=== PATIENT | male | born 1970 | race Caucasian/White ===

== ENCOUNTER 2019-05-03 05:37 | Inpatient (IN) ==
[2019-05-03] MEDS ORDERED: ONDANSETRON INJ 2 MG/ML 2 ML VIAL IV STA (06:07)
[2019-05-03] MEDS ORDERED: HYDROmorphone INJ 0.5 MG/0.5 ML SYR IV STA (06:07)
[2019-05-03] MEDS ORDERED: SODIUM CHLORIDE 0.9% 1000ML 1,000 ML IV SCH (06:15)
--- NOTE | 2019-05-03 06:17 | Emergency Department Note ---
History of Present Illness General Chief complaint: Head Pain Stated complaint: HEAD PAIN,NAUSEA Source: patient and family () Mode of arrival: ambulatory Limitations: no limitations (Occasional word finding difficulties.) History of Present Illness Onset (ago): day(s) (1.5 days) Location: head Radiation: neck Severity: severe Pain Consistency: + constant Maximum Pain Intensity: 8 Quality: + aching Relieved By: + medication (Pain medication) Exacerbated By: + none (Movement) Associated symptoms: + headaches and + nausea/vomiting Treatments prior to arrival: none This patient is a 48-year-old male who presents emergency department 4 days status post cranioplasty. States he was discharged from [facility] 2 days ago. He slept most of the day yesterday intermittently and did complain of a headache. At a proximally 3:00 this morning he woke up with severe pain and vomiting. He denies any fevers. states that there was a CSF leak post surgery as they "nicked the membrane." Patient apparently has a remote history of subdural hematoma and required decompression several years ago. The bony graft did not take subsequently and needed to be removed. A carbon fiber piece was put in its place. Patient denies any drainage from the wound. Home Medications Home Medications Medication Instructions Recorded Confirmed Type acetaminophen 650 mg PO Q4 PRN 05/03/19 05/03/19 History oxycodone 5 mg PO Q4 PRN 05/03/19 05/03/19 History phenytoin 100 mg PO TID 05/03/19 05/03/19 History Allergies Allergy/AdvReac Type Severity Reaction Status Date / Time No Known Allergies Allergy Verified 05/03/19 06:27 Past Med/Surg History Medical History Chronic post-traumatic headache, not intractable (Chronic) Hypertriglyceridemia (Chronic) Subdural hemorrhage following injury with concussion 2010 Surgical History History of cranioplasty (Chronic) Status post craniotomy (Chronic) due to SDH in 2010 with bone flap placement Social History Preferred Language: Spanish Research Assistant Member Required: No Beliefs That Will Affect Care: None Current Living Situation: Spouse Other Information That Helps Us Care for You: No Feels Safe at Home: Yes Safety Concerns: Feels Safe At This Time Smoking Status: Current every day smoker Tobacco Type: cigarettes Do You Dip or Chew Tobacco: No Second Hand Exposure: Yes Tobacco Cessation Education Requested by Patient: No Hx Alcohol Use: Yes (occ) Alcohol type: beer Hx Substance Use: No Review of Systems See HPI for pertinent positives & negatives. and A total of 10 systems reviewed and were otherwise negative Physical Exam Vital Signs Vital Signs - 24 hr 05/03/19 05:42 Temperature 36.5 C Temperature Source Oral Sepsis Recent Fever Within 48 Hours No Sepsis Action Taken by Nursing No Action Required Pulse Rate 78 Pulse Rhythm Regular Pulse Strength Normal Respiratory Rate 20 Respiratory Effort / Characteristics Non-Labored Spontaneous Respiratory Depth Normal Respiratory Pattern Regular Blood Pressure 162/95 H Blood Pressure Mean 117 Blood Pressure Position Sitting Pulse Oximetry 100 Oxygen Delivery Method Room Air Vital signs reviewed. General: Well-appearing 48 yo male, in no significant distress. HEENT: No scleral icterus, PERRLA, neck supple. Atraumatic. Cardiovascular: Regular rate and rhythm, no extra sounds. Pulmonary: Clear to auscultation bilaterally, normal work of breathing. Abdomen: Soft, nontender, nondistended, positive bowel sounds. Musculoskeletal: Atraumatic, no peripheral edema. Neurologic: Patient awake alert and oriented x 3, full strength in all 4 extremities. Cranial nerves 2 through 12 grossly intact. No meningeal signs Skin: Warm, dry, no rash. Sutures in L scalp, boggy surrounding tissue, no drainage. Course Administered Medications Cyclobenzaprine HCl (Flexeril) 10 mg PO BID PRN PRN Reason: Muscle Spasm Stop: 06/03/19 08:59 Last Admin: 05/05/19 07:54 Dose: 10 mg Documented by: [id number] Admin: 05/04/19 20:46 Dose: 10 mg Documented by: [id number] Gadobutrol (Gadavist 65ml) 11 ml IV ONCE PRN PRN Reason: Interaction Checking Stop: 05/08/19 16:34 Last Admin: 05/04/19 16:35 Dose: 11 ml Documented by: [id number] Hydromorphone HCl (Dilaudid) 0.5 mg IV Q4H PRN PRN Reason: Pain Stop: 05/17/19 09:39 Last Admin: 05/05/19 09:05 Dose: 0.5 mg Documented by: [id number] Admin: 05/05/19 04:58 Dose: 0.5 mg Documented by: [id number] Admin: 05/05/19 01:04 Dose: 0.5 mg Documented by: [id number] Admin: 05/04/19 20:47 Dose: 0.5 mg Documented by: [id number] Admin: 05/04/19 08:44 Dose: 0.5 mg Documented by: [id number] Admin: 05/04/19 04:47 Dose: 0.5 mg Documented by: [id number] Admin: 05/04/19 00:26 Dose: 0.5 mg Documented by: [id number] Admin: 05/03/19 19:26 Dose: 0.5 mg Documented by: [id number] Admin: 05/03/19 15:24 Dose: 0.5 mg Documented by: [id number] Acetaminophen (Ofirmev) 1,000 mg in 100 mls @ 400 mls/hr IV Q8 VERITO Stop: 06/02/19 11:14 Last Infusion: 05/05/19 06:34 Dose: 0 mls/hr Documented by: [id number] Admin: 05/05/19 06:07 Dose: 400 mls/hr Documented by: [id number] Infusion: 05/04/19 21:26 Dose: 0 mls/hr Documented by: [id number] Admin: 05/04/19 20:46 Dose: 400 mls/hr Documented by: [id number] Infusion: 05/04/19 13:38 Dose: 0 mls/hr Documented by: [id number] Admin: 05/04/19 13:21 Dose: 400 mls/hr Documented by: [id number] Infusion: 05/04/19 06:00 Dose: 0 mls/hr Documented by: [id number] Admin: 05/04/19 05:43 Dose: 400 mls/hr Documented by: [id number] Infusion: 05/03/19 22:10 Dose: 0 mls/hr Documented by: [id number] Admin: 05/03/19 21:53 Dose: 400 mls/hr Documented by: [id number] Infusion: 05/03/19 11:46 Dose: 0 mls/hr Documented by: [id number] Admin: 05/03/19 11:27 Dose: 400 mls/hr Documented by: [id number] Ondansetron HCl (Zofran) 4 mg IV Q6H PRN PRN Reason: Nausea Stop: 06/02/19 10:50 Last Admin: 05/04/19 20:47 Dose: 4 mg Documented by: [id number] Admin: 05/04/19 00:32 Dose: 4 mg Documented by: [id number] Admin: 05/03/19 15:05 Dose: 4 mg Documented by: [id number] Phenytoin (Dilantin) 100 mg PO TID VERITO Stop: 05/06/19 13:59 Last Admin: 05/05/19 07:54 Dose: 100 mg Documented by: [id number] Admin: 05/04/19 20:46 Dose: 100 mg Documented by: [id number] Admin: 05/04/19 15:08 Dose: 100 mg Documented by: [id number] Admin: 05/04/19 07:59 Dose: 100 mg Documented by: [id number] Admin: 05/03/19 21:54 Dose: 100 mg Documented by: [id number] Admin: 05/03/19 13:29 Dose: 100 mg Documented by: [id number] Senna/Docusate Sodium (Senokot S) 1 tab PO QAM VERITO Stop: 06/03/19 08:59 Last Admin: 05/05/19 07:55 Dose: 1 tab Documented by: [id number] Admin: 05/04/19 07:59 Dose: 1 tab Documented by: [id number] Tramadol HCl (Ultram) 50 mg PO Q4H PRN PRN Reason: Pain Stop: 06/02/19 14:10 Last Admin: 05/05/19 04:12 Dose: 50 mg Documented by: [id number] Admin: 05/04/19 19:48 Dose: 50 mg Documented by: [id number] Admin: 05/04/19 07:58 Dose: 50 mg Documented by: [id number] Discontinued Medications Cyclobenzaprine HCl (Flexeril) 10 mg PO 0930 ONE Stop: 05/04/19 09:31 Last Admin: 05/04/19 09:28 Dose: 10 mg Documented by: [id number] Hydralazine HCl (Hydralazine Hcl) 10 mg IV NOW STA Stop: 05/03/19 09:14 Last Admin: 05/03/19 09:33 Dose: 10 mg Documented by: [id number] Hydromorphone HCl (Dilaudid) 0.5 mg IV NOW STA Stop: 05/03/19 06:08 Last Admin: 05/03/19 06:35 Dose: 0.5 mg Documented by: [id number] Sodium Chloride (Nss 1000ml) 1,000 mls @ 999 mls/hr IV .Q1H1M VERITO Stop: 05/03/19 07:15 Last Infusion: 05/03/19 07:51 Dose: 0 mls/hr Documented by: [id number] Admin: 05/03/19 06:35 Dose: 999 mls/hr Documented by: [id number] Potassium Chloride (K Robert / Wtr) 10 meq in 100 mls @ 100 mls/hr IV Q1H VERITO Stop: 05/03/19 09:29 Last Infusion: 05/03/19 10:48 Dose: 0 mls/hr Documented by: [id number] Admin: 05/03/19 09:33 Dose: 100 mls/hr Documented by: [id number] Infusion: 05/03/19 09:13 Dose: 100 mls/hr Documented by: [id number] Admin: 05/03/19 08:13 Dose: 100 mls/hr Documented by: [id number] Calcium Gluconate 2,000 mg/ (Sodium Chloride) 70 mls @ 240 mls/hr IV NOW STA Stop: 05/03/19 07:55 Last Infusion: 05/03/19 08:13 Dose: 0 mls/hr Documented by: [id number] Admin: 05/03/19 07:51 Dose: 240 mls/hr Documented by: [id number] Magnesium Sulfate/Dextrose (Magnesium Sulfate / D5w) 1 gm in 100 mls @ 100 mls/hr IV ONE ONE Stop: 05/03/19 08:42 Last Admin: 05/03/19 10:49 Dose: Not Given Documented by: [id number] Potassium Chloride/Dextrose/Sod Cl (D5nss + 20meq Kcl) 20 meq in 1,000 mls @ 125 mls/hr IV .Q8H VERITO Stop: 06/02/19 11:14 Last Infusion: 05/03/19 15:30 Dose: 0 mls/hr Documented by: [id number] Admin: 05/03/19 11:26 Dose: 125 mls/hr Documented by: [id number] Ondansetron HCl (Zofran) 4 mg IV NOW STA Stop: 05/03/19 06:08 Last Admin: 05/03/19 06:35 Dose: 4 mg Documented by: [id number] Ondansetron HCl (Zofran Odt 4mg Home Pack) 1 homepack PO NOW ONE Stop: 05/03/19 07:34 Last Admin: 05/03/19 08:10 Dose: Not Given Documented by: [id number] Potassium Chloride (Ida Ciel Elix) 40 meq PO NOW STA Stop: 05/03/19 07:28 Last Admin: 05/03/19 07:54 Dose: 40 meq Documented by: [id number] Medical Decision Making Differential Diagnosis DDx: Intracranial hemorrhage, CSF leak, intracranial mass, migraine headache, tension headache, sinusitis, meningitis Medical Records Attestation: I reviewed the patient's medical records. Home Medications Current Medication List: was personally reviewed by me Laboratory Data Result diagrams: 05/05/19 09:40 05/04/19 17:00 Lab Results 05/03/19 05/03/19 05/03/19 Range/Units 06:35 06:35 06:35 WBC 13.72 H (4.8-10.8) K/uL RBC 4.95 (4.7-6.1) M/uL Hgb 16.1 (14.0-18.0) g/dL POC Hgb (14.0-18.0) g/dl Hct 43.3 (42-52) % POC Hct (42-52) % MCV 87.5 (80-100) fL MCH 32.5 (25-34) pg MCHC 37.2 H (32-36) g/dL RDW Std Deviation 40.4 (36.4-46.3) fL RDW Coeff of Marlys 12.7 (11.5-14.5) % Plt Count 183 (130-400) K/uL MPV 10.5 H (7.4-10.4) fL Immature Gran % (Auto) 0.9 % Neut % (Auto) 73.4 % Lymph % (Auto) 19.4 % [place] % (Auto) 5.8 % Eos % (Auto) 0.4 % Baso % (Auto) 0.1 % Immature Gran # (Auto) 0.13 H (0.00-0.02) K/uL Neut # (Auto) 10.05 H (1.4-6.5) K/uL Lymph # (Auto) 2.66 (1.2-3.4) K/uL [place] # (Auto) 0.80 H (0.11-0.59) K/uL Eos # (Auto) 0.06 (0-0.5) K/uL Baso # (Auto) 0.02 (0-0.2) K/uL POC Sodium (135-144) mEq/L Sodium 144 (136-145) mmol/L POC Potassium (3.3-5.0) mEq/L Potassium 2.2 L* (3.5-5.1) mmol/L POC Chloride (101-112) mEq/L Chloride 119 H (98-107) mmol/L Carbon Dioxide 18 L (21-32) mmol/L POC Total CO2 (24-31) mEq/l Anion Gap 6.0 (3-11) POC Anion Gap (16-25) mmol/L POC BUN (7-18) mg/dl BUN 7 (7-18) mg/dl Creatinine 0.40 L (0.6-1.4) mg/dl POC Creatinine (0.6-1.3) mg/dl Est Cr Clr Drug Dosing 277.1 ml/min Est GFR ( Amer) > 150.0 Est GFR (Non-Af Amer) 138.5 BUN/Creatinine Ratio 16.4 (10-20) Glucose 79 (70-99) mg/dl POC Glucose (other) (70-99) mg/dl Calcium 5.9 L* (8.5-10.1) mg/dl POC Ioniz Calcium Nu (1.12-1.32) mmol/l Phosphorus (2.5-4.9) mg/dl Magnesium 1.5 L (1.8-2.4) mg/dl Total Bilirubin 0.4 (0.2-1) mg/dl AST 10 L (15-37) U/L ALT 24 (12-78) U/L Alkaline Phosphatase 58 (45-117) U/L Total Protein 4.9 L (6.4-8.2) gm/dl Albumin 2.6 L (3.4-5.0) gm/dl Globulin 2.3 L (2.5-4.0) gm/dl Albumin/Globulin Ratio 1.1 (0.9-2) 06/21/19 06/21/19 06/21/19 Range/Units 06:35 08:33 08:33 WBC (4.8-10.8) K/uL RBC (4.7-6.1) M/uL Hgb (14.0-18.0) g/dL POC Hgb (14.0-18.0) g/dl Hct (42-52) % POC Hct (42-52) % MCV (80-100) fL MCH (25-34) pg MCHC (32-36) g/dL RDW Std Deviation (36.4-46.3) fL RDW Coeff of Marlys (11.5-14.5) % Plt Count (130-400) K/uL MPV (7.4-10.4) fL Immature Gran % (Auto) % Neut % (Auto) % Lymph % (Auto) % [place] % (Auto) % Eos % (Auto) % Baso % (Auto) % Immature Gran # (Auto) (0.00-0.02) K/uL Neut # (Auto) (1.4-6.5) K/uL Lymph # (Auto) (1.2-3.4) K/uL [place] # (Auto) (0.11-0.59) K/uL Eos # (Auto) (0-0.5) K/uL Baso # (Auto) (0-0.2) K/uL POC Sodium (135-144) mEq/L Sodium 139 (136-145) mmol/L POC Potassium (3.3-5.0) mEq/L Potassium 3.5 D (3.5-5.1) mmol/L POC Chloride (101-112) mEq/L Chloride 104 (98-107) mmol/L Carbon Dioxide 27 (21-32) mmol/L POC Total CO2 (24-31) mEq/l Anion Gap 7.0 (3-11) POC Anion Gap (16-25) mmol/L POC BUN (7-18) mg/dl BUN 8 (7-18) mg/dl Creatinine 0.87 D (0.6-1.4) mg/dl POC Creatinine (0.6-1.3) mg/dl Est Cr Clr Drug Dosing 127.4 ml/min Est GFR ( Amer) 116.6 Est GFR (Non-Af Amer) 100.6 BUN/Creatinine Ratio 9.5 L (10-20) Glucose 97 (70-99) mg/dl POC Glucose (other) (70-99) mg/dl Calcium 9.4 D (8.5-10.1) mg/dl POC Ioniz Calcium Nu (1.12-1.32) mmol/l Phosphorus 1.8 L 3.7 D (2.5-4.9) mg/dl Magnesium 2.4 (1.8-2.4) mg/dl Total Bilirubin 0.7 (0.2-1) mg/dl AST 16 (15-37) U/L ALT 37 (12-78) U/L Alkaline Phosphatase 90 (45-117) U/L Total Protein 7.5 D (6.4-8.2) gm/dl Albumin 3.8 (3.4-5.0) gm/dl Globulin 3.7 (2.5-4.0) gm/dl Albumin/Globulin Ratio 1.0 (0.9-2) 05/03/19 Range/Units 08:36 WBC (4.8-10.8) K/uL RBC (4.7-6.1) M/uL Hgb (14.0-18.0) g/dL POC Hgb 15.6 (14.0-18.0) g/dl Hct (42-52) % POC Hct 46 (42-52) % MCV (80-100) fL MCH (25-34) pg MCHC (32-36) g/dL RDW Std Deviation (36.4-46.3) fL RDW Coeff of Marlys (11.5-14.5) % Plt Count (130-400) K/uL MPV (7.4-10.4) fL Immature Gran % (Auto) % Neut % (Auto) % Lymph % (Auto) % [place] % (Auto) % Eos % (Auto) % Baso % (Auto) % Immature Gran # (Auto) (0.00-0.02) K/uL Neut # (Auto) (1.4-6.5) K/uL Lymph # (Auto) (1.2-3.4) K/uL [place] # (Auto) (0.11-0.59) K/uL Eos # (Auto) (0-0.5) K/uL Baso # (Auto) (0-0.2) K/uL POC Sodium 139 (135-144) mEq/L Sodium (136-145) mmol/L POC Potassium 3.5 (3.3-5.0) mEq/L Potassium (3.5-5.1) mmol/L POC Chloride 101 (101-112) mEq/L Chloride (98-107) mmol/L Carbon Dioxide (21-32) mmol/L POC Total CO2 25 (24-31) mEq/l Anion Gap (3-11) POC Anion Gap 18.0 (16-25) mmol/L POC BUN 7 (7-18) mg/dl BUN (7-18) mg/dl Creatinine (0.6-1.4) mg/dl POC Creatinine 0.8 (0.6-1.3) mg/dl Est Cr Clr Drug Dosing ml/min Est GFR ( Amer) Est GFR (Non-Af Amer) BUN/Creatinine Ratio (10-20) Glucose (70-99) mg/dl POC Glucose (other) 100 H (70-99) mg/dl Calcium (8.5-10.1) mg/dl POC Ioniz Calcium Nu 1.20 (1.12-1.32) mmol/l Phosphorus (2.5-4.9) mg/dl Magnesium (1.8-2.4) mg/dl Total Bilirubin (0.2-1) mg/dl AST (15-37) U/L ALT (12-78) U/L Alkaline Phosphatase (45-117) U/L Total Protein (6.4-8.2) gm/dl Albumin (3.4-5.0) gm/dl Globulin (2.5-4.0) gm/dl Albumin/Globulin Ratio (0.9-2) Imaging Data Radiologist's Impression: CT head/brain wo con CLINICAL HISTORY: 48 years-old Male with 4 days s/p cranioplasty at [facility]-severe [facility]. Acute severe headache with recent craniotomy TECHNIQUE: Multiple axial CT images of the head were obtained without contrast. A dose lowering technique was utilized adhering to the principles of ALARA. CT DOSE: 729.78 mGycm COMPARISON: None. FINDINGS: Acute craniotomy changes about the left parietal calvarium with air and fluid-filled collection superficial to the craniotomy site measuring up to 7.1 x 1.0 cm. There is a graft at the craniotomy site noted as well. Mild to moderate mucosal thickening of the ethmoid air cells. Mild mucosal thickening of the left maxillary sinus. Soft tissues are otherwise unremarkable. The orbits are within normal limits. Air intermixed with hyperdense material is noted about the left cerebral convexity measuring up to 6 mm transversely and the apex. Extra-axial hemorrhage adjacent to left frontal lobe measures up to 5 cm transversely, image 13 series 2. Scattered areas of mild subarachnoid hemorrhage noted about the right cerebral hemisphere involving the frontal, temporal and parietal lobes. Juan tionally, there is asymmetric prominence of the extra-axial space adjacent to the right frontal lobe measuring up to approximate 7 mm. Ill-defined hyperdensity about the quadrigeminal plate cistern, notably on the right may reflect additional subarachnoid hemorrhage. No midline shift, hydrocephalus or intraparenchymal hemorrhage identified. No territorial infarct. IMPRESSION: 1. Postoperative changes from recent left-sided craniotomy. Acute left-sided subdural hematoma is noted adjacent to the left frontal and temporal lobes measuring up to 5 mm. 2. Scattered subarachnoid hemorrhage about the right cerebral hemisphere with possible additional subarachnoid hemorrhage about the quadrigeminal plate cistern. No midline shift or acute infarction identified. 3. Air and fluid-filled collection superficial to the craniotomy site is suggestive of a postoperative seroma adjacent to the graft. Findings were discussed with Dr. Khalil on 05/03/2019 at 7:05 AM The above report was generated using voice recognition software. It may contain grammatical, syntax or spelling errors. Electronically signed by: Michel Be M.D. 05/03/2019 7:10 AM Dictated: 05/03/19 0657 Transcribed: 05/03/19 0657 ECG Data Attestation: I personally reviewed and interpreted this ECG as follows: Indication: other (electrolyte abnl) Rate (beats per minute): 73 Rhythm: normal sinus Findings: + other (no ectopy, no ischemia) Blood Pressure Blood Pressure Findings: Elevated blood pressure Blood Pressure Disposition: elevated BP felt to be situational MDM Narrative This pt was evaluated and appeared to be in no distress. IV access was obtained and lab work was drawn. Pt was placed on the cardiac surgeon. IV dilaudid 0.5 mg and IV zofran was given. IVF were initiated. Lab work reveals an elevated WBC. No s/s of infection. CT is read as above. I did speak with Dr Love at [facility] neurosurgery. We attempted to push images through PACS, to no avail. I read the current rads report and she reviewed images on 05/01 just prior to pt's d/c. She feels there is no change. She does not feel pt requires transfer to [facility] for their services. After consultation, abnl labs were reported. IV calcium gluconate and potassium were ordered. Consults with Gilbert Franz of IM and Gomez of nephrology were placed. Recommendations for in house tx were made and labs were repeated, pt had no reason for the abnl. Repeat labs were much improved, indicating likely saline contamination of lab draw #1. Nevertheless, the pt will be observed in house for further care by the hospitalist service. Pt and are aware of the plan and agree. Impression & Plan Acute headache, History of cranioplasty, Abnormal laboratory test result Discharge Plan Visit Data *Final* Discharge Date/Time: 05/03/19 10:21 Chief Complaint: Head Pain Stated Complaint: HEAD PAIN,NAUSEA ED Provider: Tawnya Khalil Discharge Problem: Acute headache, History of cranioplasty, Abnormal laboratory test result Patient Disposition: Admitted As Inpatient Condition: Fair Discharge Instructions Interventions: ED Discharge Assessment Last Done: 05/03/19 10:21 Discharge Problem: Acute headache Qualifiers: Headache type: unspecified Intractability: intractable Qualified Code(s): R51 - Headache
[2019-05-03 06:46] LABS: Basophils # (auto) 0.02 K/uL (0-0.2); Basophils % (auto) 0.1 %; Eosinophils # (auto) 0.06 K/uL (0-0.5); Eosinophils % (auto) 0.4 %; Hematocrit (blood only) 43.3 % (42-52); Hemoglobin 16.1 g/dL (14.0-18.0); Immature Granulocytes # (auto) 0.13 K/uL (0.00-0.02); Immature Granulocytes % (auto) 0.9 %; Lymphocytes # (auto) 2.66 K/uL (1.2-3.4); Lymphocytes % (auto) 19.4 %; Mean Corpuscular Hgb Conc 37.2 g/dL (32-36); Mean Corpuscular Volume 87.5 fL (80-100); Mean Platelet Volume 10.5 fL (7.4-10.4); Monocytes % (auto) 5.8 %; Neutrophils # (auto) 10.05 K/uL (1.4-6.5); Neutrophils % (auto) 73.4 %; Platelet Count 183 K/uL (130-400); RDW Coefficient of Variation 12.7 % (11.5-14.5); RDW Standard Deviation 40.4 fL (36.4-46.3); Red Blood Count 4.95 M/uL (4.7-6.1); White Blood Count 13.72 K/uL (4.8-10.8)
--- NOTE | 2019-05-03 07:12 | CT Scan Report ---
CT head/brain wo con CLINICAL HISTORY: 48 years-old Male with 4 [place] [facility] [place] Acute severe head ache with recent craniotomy TECHNIQUE: Multiple axial CT images of the head were obtained without contrast. A dose lowering tech nique was utilized adhering to the principles of ALARA. CT DOSE: 729.78 mGycm COMPARISON: None. FINDINGS: Acute craniotomy changes about the left parietal calvarium with air and fluid-filled collec tion superficial to the craniotomy site measuring up to 7.1 x 1.0 cm. There is a graft at the craniot amanda site noted as well. Mild to moderate mucosal thickening of the ethmoid air cells. Mild mucosal th ickening of the left maxillary sinus. Soft tissues are otherwise unremarkable. The orbits are within normal limits. Air intermixed with hyperdense material is noted about the left cerebral convexity measuring up to 6 mm transversely and the apex. Extra-axial hemorrhage adjacent to left frontal lobe measures up to 5 c m transversely, image 13 series 2. Scattered areas of mild subarachnoid hemorrhage noted about the ri ght cerebral hemisphere involving the frontal, temporal and parietal lobes. Additionally, there is as ymmetric prominence of the extra-axial space adjacent to the right frontal lobe measuring up to appro ximate 7 mm. Ill-defined hyperdensity about the quadrigeminal plate cistern, notably on the right may reflect additional subarachnoid hemorrhage. No midline shift, hydrocephalus or intraparenchymal hemo rrhage identified. No territorial infarct. IMPRESSION: 1. Postoperative changes from recent left-sided craniotomy. Acute left-sided subdural hematoma is not ed adjacent to the left frontal and temporal lobes measuring up to 5 mm. 2. Scattered subarachnoid hemorrhage about the right cerebral hemisphere with possible additional sub arachnoid hemorrhage about the quadrigeminal plate cistern. No midline shift or acute infarction iden tified. 3. Air and fluid-filled collection superficial to the craniotomy site is suggestive of a postoperativ e seroma adjacent to the graft. Findings were discussed with Dr. Khalil on 05/03/2019 at 7:05 AM The above report was generated using voice recognition software. It may contain grammatical, syntax o r spelling errors. Electronically signed by: Michel Be M.D. 05/03/2019 7:10 AM
[2019-05-03 07:13] LABS: Alanine Aminotransferase 24 U/L (12-78); Albumin Globulin Ratio 1.1 (0.9-2); Albumin Level 2.6 gm/dl (3.4-5.0); Alkaline Phosphatase 58 U/L (45-117); Aspartate Aminotransferase 10 U/L (15-37); BUN Creatinine Ratio 16.4 (10-20); Bilirubin,Total 0.4 mg/dl (0.2-1); Blood Urea Nitrogen 7 mg/dl (7-18); Calcium 5.9 mg/dl (8.5-10.1); Carbon Dioxide 18 mmol/L (21-32); Chloride 119 mmol/L (98-107); Creatinine Clr Calc Pharmacy 277.1 ml/min; Est GFR (African American) > 150.0; Est GFR (Non-African American) 138.5; Globulin 2.3 gm/dl (2.5-4.0); Glucose 79 mg/dl (70-99); Potassium 2.2 mmol/L (3.5-5.1); Sodium 144 mmol/L (136-145); Total Protein 4.9 gm/dl (6.4-8.2)
[2019-05-03] MEDS ORDERED: POTASSIUM CHLORIDE 20 MEQ/15 ML UDC PO STA (07:27)
[2019-05-03] MEDS ORDERED: CALCIUM GLUCONATE 10% 10 ML VIAL IV STA (07:30)
[2019-05-03] MEDS ORDERED: ONDANSETRON HOME PACK 4MG OD TAB PO ONE (07:33)
[2019-05-03] MEDS ORDERED: CALCIUM GLUCONATE 10% 2,000 MG in SODIUM CHLORIDE 0.9% 50 ML IV STA (07:38)
[2019-05-03] MEDS ORDERED: MAGNESIUM SULFATE / D5W 1 GM/100 ML BAG IV ONE (07:43)
[2019-05-03] MEDS: POTASSIUM CHLORIDE / WTR 10 MEQ/100 ML PLCT IV SCH ×2 (08:13→09:33)
[2019-05-03 08:48] LABS: iSTAT Creatinine 0.8 mg/dl (0.6-1.3); iSTAT Hemoglobin 15.6 g/dl (14.0-18.0); iSTAT Ionized Calcium 1.2 mmol/l (1.12-1.32); iSTAT Potassium 3.5 mEq/L (3.3-5.0)
[2019-05-03] MEDS ORDERED: HydrALAZINE HCL 20 MG/ML VIAL IV STA (09:13)
[2019-05-03 09:14] LABS: Albumin Level 3.8 gm/dl (3.4-5.0); BUN Creatinine Ratio 9.5 (10-20); Bilirubin,Total 0.7 mg/dl (0.2-1); Calcium 9.4 mg/dl (8.5-10.1); Creatinine Clr Calc Pharmacy 127.4 ml/min; Est GFR (African American) 116.6; Est GFR (Non-African American) 100.6; Globulin 3.7 gm/dl (2.5-4.0); Phosphorus 3.7 mg/dl (2.5-4.9); Potassium 3.5 mmol/L (3.5-5.1); Total Protein 7.5 gm/dl (6.4-8.2)
--- NOTE | 2019-05-03 09:55 | History & Physical Report ---
Date of Service May 03, 2019 Assessment & Plan (1) Acute headache: Severe GREEN s/p cranioplasty 04/29/19 with SDH/SAH noted on CT head from today. Dr. Franz spoke with neurosurgery footwear production machine operator, Dr. Alejandra Jaquez, at [facility] who stated that current symptoms are expected post-operatively and that imaging seems stable from discharge. Discussed possibility of transfer due to lack of neurosurgeon at this facility but Dr. Jaquez did not think that was necessary at this time. Current symptoms believed to be related to post- operative SAH and per Dr. Jaquez may last for up to a month - symptomatic management recommended. Meningitis thought less likely due to pt afebrile with only mild leukocytosis an stable neurologic exam. - Monitor on telemetry - Neuro checks Q4 hours - Dilaudid for pain control - Zofran for nausea - If worsening pain, change in neurologic exam, progressive leukocytosis, then will need to reconsider transfer for neurosurgery evaluation ([phone] Mon- Monday 8-4:30 OR [phone] and ask for neurosurgery resident footwear production machine operator) - Continue phenytoin for post-operative seizure prophylaxis Current outpatient neurosurgery f/u appt scheduled for 05/13/19 at 12:45 pm with Suzan Crandall PA-C/Dr. Simms (2) Acute hypokalemia: Also noted to have hypocalcemia, hypomagnesemia, hypophosphatemia on initial labs - improved on repeats. Repletion started in ED - Will follow BMP Q6 hrs - Nephrology saw pt in ED - appreciate recommendations - D5NS with 20 mEq KCL at 125 ml/hr since oral intake limited - If worsening electrolytes in spite of repletion, may need to consider additional work-up/possible transfer (3) Hypocalcemia: No signs of tetany on exam - continue to monitor (4) Hypomagnesemia: Improved without repletion - lab error? Will continue to monitor (5) History of cranioplasty: Done 04/29/19 at [facility] - see above plan of care. Patient seen and evaluated with attending physician, Dr. Franz. Plan of care discussed and as outlined above. Case discussed with nephrology in the ED. updated at bedside. All questions answered. Will need to monitor patient closely due to new and progressive GREEN/neck pain and stiffness s/p recent cranioplasty with SAH/SDH on CT. Blood cultures ordered to r/o bacteremia. Hold empiric antibiotics at this time since afebrile and only mild leukocytosis. Rolanda Diaz PA-C History of Present Illness Chief Complaint: Severe GREEN and vomiting Primary Care Provider: Mat Thomas MD This is a 48 y/o male with a PMH of SDH in 2010 with subsequent placement of bone flap and recent cranioplasty (04/29/19) due to deterioration of flap who presents to the ED this morning with severe GREEN and vomiting, then found to have multiple electrolyte abnormalities so referred for admission. Pt reports initial injury occurred during a pick-up football game and ultimately required life flight to [facility] and placement of a bone flap. About four years ago, he developed chronic frontal headaches for which he followed with neurology and was tried on multiple medications without relief. He was followed by [facility] neurosurgery who declined to proceed with cranioplasty so pt sought a second opinion at [facility]. Decision made to proceed with cranioplasty after deterioration of bone flap noted on MRI and pt with persistent symptoms affecting his quality of life. Per , the surgery went well and patient was discharged on POD #2 feeling well. He came home and slept for a couple hours. When he woke up, he noted a new generalized GREEN with associated neck pain and stiffness. He has been attempting to manage this at home using oxycodone and Tylenol but pain seems to be worsening. He slept most of yesterday except when he woke up to take his medications. Limited oral intake since discharge. Last night, he was awoken around 2-3 am with worsening GREEN and nausea/vomiting. He reports two episodes of vomiting at home but none in ED. His reports that she called [facility] this AM and spoke to someone from neurosurgery about symptoms (she was told his surgeon, Dr. Simms, is out of town) - they recommended that patient be evaluated in the local ED. At present, pt describes GREEN as a generalized pressure and pain - initially upon presentation it was 8-9/10 but after pain medication it is currently 5-6/10. He continues with nausea even with Zofran but has not vomiting. He describes associated posterior neck and stiffness with limited ROM due to pain, particularly flexion/extension. He denies fevers, chills, sweats, dizziness, syncope, chest pain, dyspnea, visual changes, parasthesias, focal weakness. He does note fatigue. Allergies Allergy/AdvReac Type Severity Reaction Status Date / Time No Known Allergies Allergy Verified 05/03/19 06:27 Home Medications Home Medications Medication Instructions Recorded Confirmed Type acetaminophen 650 mg PO Q4 PRN 05/03/19 05/03/19 History oxycodone 5 mg PO Q4 PRN 05/03/19 05/03/19 History phenytoin 100 mg PO TID 05/03/19 05/03/19 History Past Med/Surg History Medical History Chronic post-traumatic headache, not intractable (Chronic) Hypertriglyceridemia (Chronic) Subdural hemorrhage following injury with concussion 2010 Surgical History History of cranioplasty (Chronic) Status post craniotomy (Chronic) due to SDH in 2010 with bone flap placement Social History Preferred Language: Setswana Testing Director Required: No Beliefs That Will Affect Care: None Current Living Situation: Spouse Other Information That Helps Us Care for You: No Feels Safe at Home: Yes Safety Concerns: Feels Safe At This Time Smoking Status: Current every day smoker Tobacco Type: cigarettes Do You Dip or Chew Tobacco: No Second Hand Exposure: Yes Tobacco Cessation Education Requested by Patient: No Hx Alcohol Use: Yes (occ) Alcohol type: beer Hx Substance Use: No Review of Systems Review of Systems: All systems reviewed & are unremarkable except as noted in HPI & below Constitutional: + fatigue and + anorexia; no fever, no chills, no sweats and no weakness Eyes: + photophobia (mild); no diplopia and no worsening vision Ear, Nose, Mouth, Throat: no hearing loss, no hoarseness and no dysphagia Respiratory: no cough, no chest congestion and no dyspnea Cardiovascular: no chest pain, no palpitations, no lightheadedness and no syncope Gastrointestinal: + nausea and + vomiting; no abdominal pain, no change in bowel habits and no diarrhea/loose stools Genitourinary: no difficulty urinating, no urinary frequency and no urinary incontinence Musculoskeletal: + neck pain; no back pain, no joint pain and no myalgia Integumentary: no rash and no erythema Neurologic: + headache(s); no localized weakness, no paresthesia, no lack of coordination, no seizure-like activity, no dizziness, no syncope, no abnormal speech and no behavioral changes Physical Exam Constitutional: well developed and well nourished Appears uncomfortable but oriented x3, answering questions appropriately. Eyes: PERRL, conjunctivae normal, anicteric sclerae EOM intact bilaterally ENMT: external ear and nose normal, oropharynx normal Neck: trachea midline Respiratory: no respiratory distress Auscultation: lungs clear to auscultation bilaterally; no rales, no rhonchi and no wheezes Cardiovascular: Rate/Rhythm: regular rate and regular rhythm Heart Sounds: no gallop, no murmur and no cardiac rub Extremities: no calf tenderness and no pedal edema Gastrointestinal (Abdomen): Inspection/Auscultation: normal bowel sounds; abdomen not distended Percussion/Palpation: abdomen soft; abdomen nontender and no guarding Musculoskeletal: no cyanosis or clubbing, extremities motor strength 5/5 Skin: no rashes, warm and dry incision on left scalp with sutures C/D/I - no surrounding erythema or drainage Neurologic: CN's II-XI intact bilaterally; no focal motor deficits and not confused Speech / Cognition: normal speech Motor/Sensory: no tremor, no pronator drift and no sensory deficit Psychiatric: A+Ox3, euthymic affect Results & Data Vital Signs (Past 12 Hours) Vital Signs Temp Pulse Pulse Resp BP BP Pulse Ox 05/03/19 09:30 67 17 153/107 H 98 05/03/19 09:05 68 18 171/107 H 99 05/03/19 08:17 72 18 165/103 H 97 05/03/19 07:03 69 17 170/93 H 97 05/03/19 06:43 60 14 149/92 H 97 05/03/19 05:42 36.5 C 78 20 162/95 H 100 Laboratory Results Laboratory Results - last 24 hr 05/03/19 05/03/19 05/03/19 06:35 06:35 06:35 WBC 13.72 H RBC 4.95 Hgb 16.1 POC Hgb Hct 43.3 POC Hct MCV 87.5 MCH 32.5 MCHC 37.2 H RDW Std Deviation 40.4 RDW Coeff of Marlys 12.7 Plt Count 183 MPV 10.5 H Immature Gran % (Auto) 0.9 Neut % (Auto) 73.4 Lymph % (Auto) 19.4 [place] % (Auto) 5.8 Eos % (Auto) 0.4 Baso % (Auto) 0.1 Immature Gran # (Auto) 0.13 H Neut # (Auto) 10.05 H Lymph # (Auto) 2.66 [place] # (Auto) 0.80 H Eos # (Auto) 0.06 Baso # (Auto) 0.02 POC Sodium Sodium 144 POC Potassium Potassium 2.2 L* POC Chloride Chloride 119 H Carbon Dioxide 18 L POC Total CO2 Anion Gap 6.0 POC Anion Gap POC BUN BUN 7 Creatinine 0.40 L POC Creatinine Est Cr Clr Drug Dosing 277.1 Est GFR ( Amer) > 150.0 Est GFR (Non-Af Amer) 138.5 BUN/Creatinine Ratio 16.4 Glucose 79 POC Glucose (other) Calcium 5.9 L* POC Ioniz Calcium Nu Phosphorus Magnesium 1.5 L Total Bilirubin 0.4 AST 10 L ALT 24 Alkaline Phosphatase 58 Total Protein 4.9 L Albumin 2.6 L Globulin 2.3 L Albumin/Globulin Ratio 1.1 05/03/19 05/03/19 05/03/19 06:35 08:33 08:33 WBC RBC Hgb POC Hgb Hct POC Hct MCV MCH MCHC RDW Std Deviation RDW Coeff of Marlys Plt Count MPV Immature Gran % (Auto) Neut % (Auto) Lymph % (Auto) [place] % (Auto) Eos % (Auto) Baso % (Auto) Immature Gran # (Auto) Neut # (Auto) Lymph # (Auto) [place] # (Auto) Eos # (Auto) Baso # (Auto) POC Sodium Sodium 139 POC Potassium Potassium 3.5 D POC Chloride Chloride 104 Carbon Dioxide 27 POC Total CO2 Anion Gap 7.0 POC Anion Gap POC BUN BUN 8 Creatinine 0.87 D POC Creatinine Est Cr Clr Drug Dosing 127.4 Est GFR ( Amer) 116.6 Est GFR (Non-Af Amer) 100.6 BUN/Creatinine Ratio 9.5 L Glucose 97 POC Glucose (other) Calcium 9.4 D POC Ioniz Calcium Nu Phosphorus 1.8 L 3.7 D Magnesium 2.4 Total Bilirubin 0.7 AST 16 ALT 37 Alkaline Phosphatase 90 Total Protein 7.5 D Albumin 3.8 Globulin 3.7 Albumin/Globulin Ratio 1.0 05/03/19 08:36 WBC RBC Hgb POC Hgb 15.6 Hct POC Hct 46 MCV MCH MCHC RDW Std Deviation RDW Coeff of Marlys Plt Count MPV Immature Gran % (Auto) Neut % (Auto) Lymph % (Auto) [place] % (Auto) Eos % (Auto) Baso % (Auto) Immature Gran # (Auto) Neut # (Auto) Lymph # (Auto) [place] # (Auto) Eos # (Auto) Baso # (Auto) POC Sodium 139 Sodium POC Potassium 3.5 Potassium POC Chloride 101 Chloride Carbon Dioxide POC Total CO2 25 Anion Gap POC Anion Gap 18.0 POC BUN 7 BUN Creatinine POC Creatinine 0.8 Est Cr Clr Drug Dosing Est GFR ( Amer) Est GFR (Non-Af Amer) BUN/Creatinine Ratio Glucose POC Glucose (other) 100 H Calcium POC Ioniz Calcium Nu 1.20 Phosphorus Magnesium Total Bilirubin AST ALT Alkaline Phosphatase Total Protein Albumin Globulin Albumin/Globulin Ratio Diagnostic Findings CT Head 05/03/19 - IMPRESSION: 1. Postoperative changes from recent left-sided craniotomy. Acute left-sided subdural hematoma is noted adjacent to the left frontal and temporal lobes measuring up to 5 mm. 2. Scattered subarachnoid hemorrhage about the right cerebral hemisphere with possible additional subarachnoid hemorrhage about the quadrigeminal plate cistern. No midline shift or acute infarction identified. 3. Air and fluid-filled collection superficial to the craniotomy site is suggestive of a postoperative seroma adjacent to the graft. Medications Administered Discontinued Medications Hydralazine HCl (Hydralazine Hcl) 10 mg IV NOW STA Stop: 05/03/19 09:14 Last Admin: 05/03/19 09:33 Dose: 10 mg Documented by: [id number] Hydromorphone HCl (Dilaudid) 0.5 mg IV NOW STA Stop: 05/03/19 06:08 Last Admin: 05/03/19 06:35 Dose: 0.5 mg Documented by: [id number] Sodium Chloride (Nss 1000ml) 1,000 mls @ 999 mls/hr IV .Q1H1M VERITO Stop: 05/03/19 07:15 Last Infusion: 05/03/19 07:51 Dose: 0 mls/hr Documented by: [id number] Admin: 05/03/19 06:35 Dose: 999 mls/hr Documented by: [id number] Potassium Chloride (K Robert / Wtr) 10 meq in 100 mls @ 100 mls/hr IV Q1H VERITO Stop: 05/03/19 09:29 Last Admin: 05/03/19 09:33 Dose: 100 mls/hr Documented by: [id number] Infusion: 05/03/19 09:13 Dose: 100 mls/hr Documented by: [id number] Admin: 05/03/19 08:13 Dose: 100 mls/hr Documented by: [id number] Calcium Gluconate 2,000 mg/ (Sodium Chloride) 70 mls @ 240 mls/hr IV NOW STA Stop: 05/03/19 07:55 Last Infusion: 05/03/19 08:13 Dose: 0 mls/hr Documented by: [id number] Admin: 05/03/19 07:51 Dose: 240 mls/hr Documented by: [id number] Ondansetron HCl (Zofran) 4 mg IV NOW STA Stop: 05/03/19 06:08 Last Admin: 05/03/19 06:35 Dose: 4 mg Documented by: [id number] Ondansetron HCl (Zofran Odt 4mg Home Pack) 1 homepack PO NOW ONE Stop: 05/03/19 07:34 Last Admin: 05/03/19 08:10 Dose: Not Given Documented by: [id number] Potassium Chloride (Ida Ciel Elix) 40 meq PO NOW STA Stop: 05/03/19 07:28 Last Admin: 05/03/19 07:54 Dose: 40 meq Documented by: [id number] ECG Additional Comments: Personally reviewed at bedside - normal sinus rhythm without acute change Code Status & VTE Plan Code Status Full resuscitation per our discussion with at bedside VTE Prophylaxis Plan Reason for no VTE drug order: Contraindicated (recent cranioplasty with SDH/SAH on CT) Supervising Physician Co-Signing Physician Notes Attending Addendum: care coordinated with JESSICA Diaz please refer to her notes for full details, I agree with her notes patient seen and examined, records reviewed by myself as well on exam, patient seen with his at the bedside Not in distress Reports moderate generalized headache, and posterior neck pain worse with movement Was just given Dilaudid IV which reduced the pain from severe to moderate Denies visual symptoms or deficits, focal weakness or numbness Denies fevers and chills No paresthesias, cramping, muscle weakness no other symptoms VS noted and reviewed oriented x3, not in distress, speaks in sentences with no effort nor accessory muscle use Head-surgical incision site the left parietal region will opposed, sutures in place, healing well No bleeding or discharge normal rate, regular rhythm, no murmurs clear breath sounds bilaterally non distended, soft, nontender no bipedal edema, erythema, warmth Oriented x3, cranial nerves II to XII grossly intact, strength 5/5 all extremities, sensation 100% lower extremity Positive pain with neck movement WBC [address] head: Noted and reviewed ASSESSMENT AND PLAN Headache, neck pain, status post cranioplasty CT head: Positive for subdural hematoma and subarachnoid hemorrhage areas Discussed personally with [facility] neurosurgeon Dr. Jaquez Discussed concerns regarding severe headache, neck pain, vomiting and CAT scan of the head findings Per Dr. Jaquez, recommend conservative management at this time, to continue observation in our facility, continue supportive care and pain management Monitor for fever, signs of meningitis She is aware that our facility does not have neurosurgery service Continue PRN Dilaudid, PRN tramadol Monitor closely telemetry Discussed in detail at length with patient's at the bedside, she is understanding, agreeable, comfortable with the plan of care including staying here in Monday to [facility] She is also aware that our facility does not have a neurosurgeon footwear production machine operator and if necessary will have to transfer the patient to [facility] emergently Hypertension PRN hydralazine other diagnoses and plan of care as per JESSICA Franz MD (1) Acute headache Headache type: unspecified Intractability: intractable Qualified Code(s): R51 - Headache
[2019-05-03] MEDS ORDERED: Nursing to Pharmacy Communication ONE (10:50)
[2019-05-03] MEDS ORDERED: HydrALAZINE HCL 20 MG/ML VIAL IV PRN (10:51)
[2019-05-03] MEDS ORDERED: ACETAMINOPHEN 1,000 MG/100 ML VIAL IV SCH ×2 (11:00→14:00)
[2019-05-03] MEDS ORDERED: D5NSS + 20MEQ KCL 20 MEQ/1,000 ML BAG IV SCH (11:15)
[2019-05-03] MEDS: ACETAMINOPHEN 1,000 MG/100 ML VIAL IV SCH ×2 (11:27→21:53)
[2019-05-03 13:23] LABS: BUN Creatinine Ratio 8.6 (10-20); Creatinine Clr Calc Pharmacy 140.7 ml/min; Est GFR (African American) 120.7; Est GFR (Non-African American) 104.2; Magnesium 2.3 mg/dl (1.8-2.4); Potassium 3.7 mmol/L (3.5-5.1)
[2019-05-03] MEDS: PHENYTOIN 50 MG CHEW PO SCH ×2 (13:29→21:54)
[2019-05-03] MEDS: ONDANSETRON INJ 2 MG/ML 2 ML VIAL IV PRN (15:05)
--- NOTE | 2019-05-03 15:08 | Nephrology Consultation ---
Date of Consultation May 03, 2019 Assessment & Plan (1) Acute hypokalemia: getting aggressive repletion > as above and also started on D5NS w/ 20 mEq/ L K -cont q6h bmp urgent >> labs improved at 1300 >> will stop IVF and monitor labs Present on Admission?: Yes (2) Hypocalcemia: corrected calcium actually higher; had IV ca in ER; f/u repeat labs -if phos drops again, start phosnak Present on Admission?: Yes (3) Hypomagnesemia: monitor for now q12h; no need to replete yet Present on Admission?: Yes (4) Chronic headaches: low threshold to involve neuro for sx mgt >> he follows w/ them as OP for this; especially important since he cannot use nsaids for now to manage post op GREEN/ routine chronic GREEN (depended on them before) Present on Admission?: Yes (5) History of cranioplasty: unclear to me what optimal systolic BP is in thsi post op patient > would try to keep at about 140-150s systolic for now; not on bp meds as OP Present on Admission?: Yes History of Present Illness Reason for Consultation: electrolyte disorders Requesting Physician: Dr Franz Attending Physician: Jesse Franz MD History of Present Illness 48 y/o M whom I'm asked to see for electrolyte disorders after he was admitted for same in the setting of N/V, headache, HTN. PMH includes SDH 8 years ago with 3 craniotomies (one at original SDH diagnosis, one for infection remotely, then another on 04/29 [place] [facility]), chronic GREEN for past 4 years managed by neurology. He does not feel current GREEN are any different than those he routinely has. He underwent craniotomy as above on 04/29 or 04/30 (records not available), was d/c home on 05/01, slept all day yesterday and ate very little, then woke this am w/ emesis x 2. He came to ER for eval : K was 2.2, bicarb 18, Ca 5.9, creat 0.4. on 04/26 and looking back further in [facility] system, potassium, calcium, renal function have all been appropriately controlled; he does have chronic mild erythrocytosis w/ hgb running 17s and then 18.5 on last check on 04/26/19. he takes nsaids routinely as OP for GREEN prior to OR but none since surgery. in ER he had antiemetic and 80 po K, 20 IV K, 2 gm IV calcium. Allergies Allergy/AdvReac Type Severity Reaction Status Date / Time No Known Allergies Allergy Verified 05/03/19 06:27 Home Medications Home Medications Medication Instructions Recorded Confirmed Type acetaminophen 650 mg PO Q4 PRN 05/03/19 05/03/19 History oxycodone 5 mg PO Q4 PRN 05/03/19 05/03/19 History phenytoin 100 mg PO TID 05/03/19 05/03/19 History Patient History Medical History Chronic post-traumatic headache, not intractable (Chronic) Hypertriglyceridemia (Chronic) Subdural hemorrhage following injury with concussion 2010 Surgical History History of cranioplasty (Chronic) Status post craniotomy (Chronic) due to SDH in 2010 with bone flap placement Social History Preferred Language: Chinese Interactive Media Marketing Specialist Required: No Beliefs That Will Affect Care: None Current Living Situation: Spouse Other Information That Helps Us Care for You: No Feels Safe at Home: Yes Safety Concerns: Feels Safe At This Time Smoking Status: Current every day smoker Tobacco Type: cigarettes Do You Dip or Chew Tobacco: No Second Hand Exposure: Yes Tobacco Cessation Education Requested by Patient: No Hx Alcohol Use: Yes (occ) Alcohol type: beer Hx Substance Use: No Review of Systems Review of Systems: All systems reviewed & are unremarkable except as noted in HPI & below Constitutional: + fatigue and + weakness Eyes: no worsening vision Ear, Nose, Mouth, Throat: no dry mouth Gastrointestinal: as per Subjective / HPI Musculoskeletal: denies weakness or fasciculations Endocrine: + fatigue Hematologic / Lymphatic: no easy bleeding Physical Exam Constitutional: well developed and well nourished sitting in [place] on ra maneuvers readily for exam Eyes: EOM intact bilaterally ENMT: Ears: no external ear abnormality Nose: no external nose abnormality Mouth: + dry oral mucous membranes Neck: no nuchal rigidity Respiratory: normal respiratory effort Auscultation: + diminished lung sounds Cardiovascular: RRR, no murmur, no edema Gastrointestinal (Abdomen): Inspection/Auscultation: normal bowel sounds Percussion/Palpation: abdomen soft; abdomen nontender Musculoskeletal: no cyanosis or clubbing, extremities motor strength 5/5 Extremities: strength 5/5 throughout Skin: no rashes, warm and dry incision L frontoparietal area c/d/i Neurologic: churchill, fluent speech, no tremor Psychiatric: A+Ox3, euthymic affect Speech: normal rate/rhythm/volume of speech a few issues w/ recall Results & Data Vital Signs (Past 12 Hours) Vital Signs Temp Pulse Pulse Resp BP BP Pulse Ox 05/03/19 13:04 36.5 C 05/03/19 10:56 37.1 C 67 18 151/90 H 99 05/03/19 10:21 71 18 146/91 H 96 05/03/19 09:30 67 17 153/107 H 98 05/03/19 09:05 68 18 171/107 H 99 05/03/19 08:17 72 18 165/103 H 97 05/03/19 07:03 69 17 170/93 H 97 05/03/19 06:43 60 14 149/92 H 97 05/03/19 05:42 36.5 C 78 20 162/95 H 100 Laboratory Results Abnormal lab results 05/03/19 05/03/19 05/03/19 Range/Units 06:35 06:35 06:35 WBC 13.72 H (4.8-10.8) K/uL MCHC 37.2 H (32-36) g/dL MPV 10.5 H (7.4-10.4) fL Immature Gran # (Auto) 0.13 H (0.00-0.02) K/uL Neut # (Auto) 10.05 H (1.4-6.5) K/uL [place] # (Auto) 0.80 H (0.11-0.59) K/uL Potassium 2.2 L* (3.5-5.1) mmol/L Chloride 119 H (98-107) mmol/L Carbon Dioxide 18 L (21-32) mmol/L Creatinine 0.40 L (0.6-1.4) mg/dl BUN/Creatinine Ratio (10-20) Glucose (70-99) mg/dl POC Glucose (other) (70-99) mg/dl Calcium 5.9 L* (8.5-10.1) mg/dl Phosphorus (2.5-4.9) mg/dl Magnesium 1.5 L (1.8-2.4) mg/dl AST 10 L (15-37) U/L Total Protein 4.9 L (6.4-8.2) gm/dl Albumin 2.6 L (3.4-5.0) gm/dl Globulin 2.3 L (2.5-4.0) gm/dl 05/03/19 05/03/19 05/03/19 Range/Units 06:35 08:33 08:36 WBC (4.8-10.8) K/uL MCHC (32-36) g/dL MPV (7.4-10.4) fL Immature Gran # (Auto) (0.00-0.02) K/uL Neut # (Auto) (1.4-6.5) K/uL [place] # (Auto) (0.11-0.59) K/uL Potassium (3.5-5.1) mmol/L Chloride (98-107) mmol/L Carbon Dioxide (21-32) mmol/L Creatinine (0.6-1.4) mg/dl BUN/Creatinine Ratio 9.5 L (10-20) Glucose (70-99) mg/dl POC Glucose (other) 100 H (70-99) mg/dl Calcium (8.5-10.1) mg/dl Phosphorus 1.8 L (2.5-4.9) mg/dl Magnesium (1.8-2.4) mg/dl AST (15-37) U/L Total Protein (6.4-8.2) gm/dl Albumin (3.4-5.0) gm/dl Globulin (2.5-4.0) gm/dl 05/03/19 Range/Units 12:54 WBC (4.8-10.8) K/uL MCHC (32-36) g/dL MPV (7.4-10.4) fL Immature Gran # (Auto) (0.00-0.02) K/uL Neut # (Auto) (1.4-6.5) K/uL [place] # (Auto) (0.11-0.59) K/uL Potassium (3.5-5.1) mmol/L Chloride (98-107) mmol/L Carbon Dioxide (21-32) mmol/L Creatinine (0.6-1.4) mg/dl BUN/Creatinine Ratio 8.6 L (10-20) Glucose 140 H (70-99) mg/dl POC Glucose (other) (70-99) mg/dl Calcium (8.5-10.1) mg/dl Phosphorus (2.5-4.9) mg/dl Magnesium (1.8-2.4) mg/dl AST (15-37) U/L Total Protein (6.4-8.2) gm/dl Albumin (3.4-5.0) gm/dl Globulin (2.5-4.0) gm/dl Diagnostic Findings head CT 1. Postoperative changes from recent left-sided craniotomy. Acute left-sided subdural hematoma is noted adjacent to the left frontal and temporal lobes measuring up to 5 mm. 2. Scattered subarachnoid hemorrhage about the right cerebral hemisphere with possible additional subarachnoid hemorrhage about the quadrigeminal plate cistern. No midline shift or acute infarction identified. 3. Air and fluid-filled collection superficial to the craniotomy site is suggestive of a postoperative seroma adjacent to the graft. (1) Chronic headaches Headache type: unspecified Intractability: intractable Qualified Code(s): R51 - Headache
[2019-05-03] MEDS: HYDROmorphone INJ 0.5 MG/0.5 ML SYR IV PRN ×2 (15:24→19:26)
[2019-05-03 19:47] LABS: BUN Creatinine Ratio 8.8 (10-20); Calcium 9.3 mg/dl (8.5-10.1); Creatinine Clr Calc Pharmacy 130.9 ml/min; Est GFR (African American) 117.2; Est GFR (Non-African American) 101.1; Magnesium 2.4 mg/dl (1.8-2.4); Potassium 3.6 mmol/L (3.5-5.1)
[2019-05-04] MEDS: HYDROmorphone INJ 0.5 MG/0.5 ML SYR IV PRN ×4 (00:26→20:47)
[2019-05-04] MEDS: ONDANSETRON INJ 2 MG/ML 2 ML VIAL IV PRN ×2 (00:32→20:47)
[2019-05-04 01:39] LABS: BUN Creatinine Ratio 9.3 (10-20); Calcium 8.8 mg/dl (8.5-10.1); Creatinine Clr Calc Pharmacy 126.5 ml/min; Est GFR (African American) 115.6; Est GFR (Non-African American) 99.7; Magnesium 2.3 mg/dl (1.8-2.4); Potassium 3.8 mmol/L (3.5-5.1)
[2019-05-04] MEDS: ACETAMINOPHEN 1,000 MG/100 ML VIAL IV SCH ×3 (05:43→20:46)
[2019-05-04] MEDS: TRAMADOL HCL 50 MG TABLET PO PRN ×2 (07:58→19:48)
[2019-05-04] MEDS: PHENYTOIN 50 MG CHEW PO SCH ×3 (07:59→20:46)
[2019-05-04] MEDS: DOCUSATE SODIUM/SENNA 50/8.6MG TAB PO SCH (07:59)
[2019-05-04 08:16] LABS: BUN Creatinine Ratio 12.7 (10-20); Calcium 9.4 mg/dl (8.5-10.1); Creatinine Clr Calc Pharmacy 156.2 ml/min; Est GFR (African American) 126.1; Est GFR (Non-African American) 108.8; Magnesium 2.4 mg/dl (1.8-2.4); Potassium 3.5 mmol/L (3.5-5.1)
--- NOTE | 2019-05-04 09:01 | Hospitalist Progress Note ---
Date of Service May 04, 2019 Assessment & Plan (1) Acute headache: headache has almost resolved as per patient main symptom is increased neck pain today afebrile, CBC pending cervical xray ordered trial of Flexeril BID warm compress Neurology consulted continue PRN Tramadol, Dilaudid, IV fluids (2) History of cranioplasty: [place] with [facility] recommend continue supportive care monitor for fever, signs of infection, meningitis (3) Acute hypokalemia: resolved (4) Hypocalcemia: resolved No signs of tetany on exam - continue to monitor (5) Hypomagnesemia: Improved without repletion - lab error? Will continue to monitor DVT Prophylaxis SCDs for now in light of s/p cranioplasty Dispo pending anticipate d/c home when medically stable Subjective ff up for headache, s/p cranioplasty seen resting in bed, comfortable more alert, brighter states headache is not as terrible, having more posterior neck pain, worse with movement no fever/chills, nausea no focal motor/sensory deficits no chest pain, dyspnea, palpitations, dizziness no other symptoms Review of Systems Review of Systems: All systems reviewed & are unremarkable except as noted in HPI & below Physical Exam Physical Exam: General- oriented x 3, not in distress, speaks in sentences with no effort or accessory muscle use head- surgical wound healing well, no bleeding/discharge Eyes- anicteric Neck- no JVD poor ROM due to pain Lungs- clear breath sounds bilaterally Heart- normal rate, regular rhythm; no murmurs Abdomen- normal bowel sounds, nondistended, soft, nontender Extremities- no pretibial edema, no calf tenderness Neuro- alert, oriented x 3; no gross focal neurologic deficits Skin- warm & dry Results & Data Vital Signs (Past 12 Hours) Vital Signs Temp Pulse Resp BP Pulse Ox 05/04/19 07:52 36.5 C 66 20 127/75 97 05/04/19 03:31 37.3 C 65 18 134/77 99 05/03/19 23:07 37.2 C 69 19 151/90 H 98 05/03/19 21:21 37.2 C 68 18 152/77 H 95 Laboratory Results Laboratory Results - last 24 hr 05/03/19 05/03/19 05/03/19 08:33 08:33 12:54 WBC RBC Hgb Hct MCV MCH MCHC Plt Count Sodium 139 139 Potassium 3.5 D 3.7 Chloride 104 105 Carbon Dioxide 27 25 Anion Gap 7.0 10.0 BUN 8 7 Creatinine 0.87 D 0.80 Est Cr Clr Drug Dosing 127.4 140.7 Est GFR ( Amer) 116.6 120.7 Est GFR (Non-Af Amer) 100.6 104.2 BUN/Creatinine Ratio 9.5 L 8.6 L Glucose 97 140 H Calcium 9.4 D 9.0 Phosphorus 3.7 D Magnesium 2.4 2.3 Total Bilirubin 0.7 AST 16 ALT 37 Alkaline Phosphatase 90 Total Protein 7.5 D Albumin 3.8 Globulin 3.7 Albumin/Globulin Ratio 1.0 05/03/19 05/04/19 05/04/19 19:14 01:06 07:21 WBC Pending RBC Pending Hgb Pending Hct Pending MCV Pending MCH Pending MCHC Pending Plt Count Pending Sodium 139 136 Potassium 3.6 3.8 Chloride 104 102 Carbon Dioxide 27 29 Anion Gap 8.0 5.0 BUN 8 8 Creatinine 0.86 0.89 Est Cr Clr Drug Dosing 130.9 126.5 Est GFR ( Amer) 117.2 115.6 Est GFR (Non-Af Amer) 101.1 99.7 BUN/Creatinine Ratio 8.8 L 9.3 L Glucose 113 H 105 H Calcium 9.3 8.8 Phosphorus Magnesium 2.4 2.3 Total Bilirubin AST ALT Alkaline Phosphatase Total Protein Albumin Globulin Albumin/Globulin Ratio 05/04/19 07:22 WBC RBC Hgb Hct MCV MCH MCHC Plt Count Sodium 135 L Potassium 3.5 Chloride 102 Carbon Dioxide 25 Anion Gap 8.0 BUN 9 Creatinine 0.72 Est Cr Clr Drug Dosing 156.2 Est GFR ( Amer) 126.1 Est GFR (Non-Af Amer) 108.8 BUN/Creatinine Ratio 12.7 Glucose 103 H Calcium 9.4 Phosphorus Magnesium 2.4 Total Bilirubin AST ALT Alkaline Phosphatase Total Protein Albumin Globulin Albumin/Globulin Ratio (1) Acute headache Headache type: unspecified Intractability: intractable Qualified Code(s): R51 - Headache
--- NOTE | 2019-05-04 09:01 | Nephrology Progress Note ---
Date of Service May 04, 2019 Assessment & Plan (1) Acute hypokalemia: responded to aggressive repletion , off since yesterday w/ value today 3.5. calcium and mag and phos have all rebounded -would recheck later this afternoon -reasonable to d/c home when otherwise appropriate after education about high K diet choices, w/ pt to take 3-5 servings of this daily -no indication for renal f/u unless electrolyte issues recur (2) Chronic headaches: f/u neuro recs and outpt care >> especially important since he cannot use nsaids for now to manage post op GREEN/ routine chronic GREEN (depended on them before) Present on Admission?: Yes (3) History of cranioplasty: unclear to me what optimal systolic BP is in thsi post op patient > would try to keep at about 140-150s systolic for now; not on bp meds as OP and no indication to start -given his ongoing sx, may be reasonable to observe pt another day Present on Admission?: Yes Subjective seen on rounds this am at 0910 approx; ongoing GREEN though some relief compared to yesterday ; had emesis again last evening. no N currently no sob no fasciculations/weakness Review of Systems Review of Systems: All systems reviewed & are unremarkable except as noted in HPI & below Physical Exam Constitutional: well developed and well nourished lying flat in bed, on ra,looks unwell/uncomfortable Eyes: EOM intact bilaterally ENMT: Ears: no external ear abnormality Nose: no external nose abnormality Mouth: + dry oral mucous membranes Neck: no nuchal rigidity Respiratory: normal respiratory effort Auscultation: + diminished lung sounds Cardiovascular: RRR, no murmur, no edema Gastrointestinal (Abdomen): Inspection/Auscultation: normal bowel sounds Percussion/Palpation: abdomen soft; abdomen nontender Musculoskeletal: no cyanosis or clubbing, extremities motor strength 5/5 Extremities: strength 5/5 throughout Skin: no rashes, warm and dry L scalp craniotomy wound w/d/i Neurologic: churchill, fluent speech Psychiatric: A+Ox3, euthymic affect Speech: normal rate/rhythm/volume of speech Results & Data Vital Signs (Past 12 Hours) Vital Signs Temp Pulse Resp BP Pulse Ox 05/04/19 07:52 36.5 C 66 20 127/75 97 05/04/19 03:31 37.3 C 65 18 134/77 99 05/03/19 23:07 37.2 C 69 19 151/90 H 98 05/03/19 21:21 37.2 C 68 18 152/77 H 95 Laboratory Results reviewed (1) Chronic headaches Headache type: unspecified Intractability: intractable Qualified Code(s): R51 - Headache
[2019-05-04 09:08] LABS: Basophils # (auto) 0.03 K/uL (0-0.2); Basophils % (auto) 0.2 %; Eosinophils # (auto) 0.18 K/uL (0-0.5); Eosinophils % (auto) 1.1 %; Hematocrit (blood only) 43.8 % (42-52); Hemoglobin 16.3 g/dL (14.0-18.0); Immature Granulocytes # (auto) 0.12 K/uL (0.00-0.02); Immature Granulocytes % (auto) 0.8 %; Lymphocytes % (auto) 19.1 %; Mean Corpuscular Hgb Conc 37.2 g/dL (32-36); Mean Platelet Volume 10.3 fL (7.4-10.4); Monocytes # (auto) 1.25 K/uL (0.11-0.59); Neutrophils % (auto) 70.8 %; Platelet Count 207 K/uL (130-400); RDW Coefficient of Variation 12.9 % (11.5-14.5); RDW Standard Deviation 41.6 fL (36.4-46.3); Red Blood Count 4.92 M/uL (4.7-6.1); White Blood Count 15.68 K/uL (4.8-10.8)
[2019-05-04] MEDS ORDERED: CYCLOBENZAPRINE HCL 10 MG TAB PO ONE (09:30)
--- NOTE | 2019-05-04 10:59 | XRay Report ---
XR cervical spine 2 or 3V CLINICAL HISTORY: neck pain COMPARISON STUDY: No previous studies for comparison. FINDINGS: C7 is largely obscured on this exam. No acute fracture is identified within visualized port ions of the cervical spine. Mild loss of height of the superior endplate of C5 is likely old. Prevert ebral soft tissues are unremarkable. There is mild multilevel facet arthrosis. IMPRESSION: 1. Mild loss of height of the superior endplate of C5. Although age indeterminate, this is likely old . 2. Inadequate visualization of C7 due to overlying soft tissues. 3. Mild multilevel degenerative changes within the cervical spine. Electronically signed by: Guevara Mendez M.D. 05/04/2019 10:57 AM
--- NOTE | 2019-05-04 15:33 | Communication Note ---
Date of Service: May 04, 2019 I seen Mr. Arthur today, reviewed his labs imaging studies and history and perform examination and discussed his case with Dr. Bashirwho is in charge of his care This is a man with chronic posttraumatic headaches from 2010 and deterioration and a bone flap done to treat a subdural hematoma at that time who has undergone a cranioplasty procedure at [place] on April 29, 2019 but has now developed significant cervical pain, neck stiffness, and increasing occipital headaches over and above the chronic left-sided headache that he is had for years and keri manuel has not not been responsive to medications of multiple type tried in the neurology office at [facility] by Marie Owusu PA-C At this point he is afebrile he does have a slight white count but this could be postoperative and the exam is unremarkable with exception of a mildly dysarthric speech related I think to his narcotic analgesics and reveals specifically no evidence for a cervical myelopathy or cervical radiculopathy but does reveal a very stiff neck that I cannot flex forward more than 10 degrees We need to obtain imaging of the cervical spine to exclude what I think a remote entities but once a do need to exclude in this setting i.e. an epidural abscess or an early cervical discitis and possibly even perioperative cervical disc herniation I am not making any suggestions regarding treatment of his headaches as nothing we tried in the past has been successful in right now he certainly has ample reason pain that I think should be managed by narcotic analgesics until we have a better handle on what might be causing it [facility] has been contacted they are aware of his presence here in the hospital have made suggestions that in the event he develops fever or change in mental status that he be transferred back to their institution and I am in total agreement with plan Full neurologic consult dictation has been dictated but will not be typed until later I have informed Dr. Bashir about my feelings and recommendations and will check back tomorrow on results of the cervical spine imaging studies Felix Lewis MD
--- NOTE | 2019-05-04 16:24 | Consultation Report ---
DATE OF CONSULTATION: 05/04/2019 CONSULTATION FOR: Dr. Franz. HISTORY OF PRESENT ILLNESS: The patient is 48 years old who is a patient of Dr. Mat Thomas and had a subdural hematoma back in 2010 that required craniotomy, cranioplasty, but then unfortunately he had deterioration of his bone flap and had to be assessed at [facility] and had a cranioplasty done on 04/29/2019. After discharge from [facility], he went home and then developed a generalized headache and severe stiffness in his neck, which prompted him to be admitted to our hospital for evaluation. This occurs in the setting of a relatively benign past medical history other than the chronic posttraumatic headache which developed after the subdural and has been resistant to multiple medications given by Marie Owusu PA-C, on an outpatient basis in our department and for hypertriglyceridemia and the recent cranioplasty done at [facility]. He takes few medications at home, was on acetaminophen, oxycodone and he is on prophylactic Dilantin 100 mg 3 times a day. He has no known allergies. We are consulted today because of the headache and more importantly the stiff neck. [facility] has been consulted by CM Winter, who did the initial evaluation and they have recommended that he simply be treated with analgesics and watch for development of fever or signs of a potential infection and as this develop, he be sent back to [facility] for reassessment. Today this has not occurred, but the neck pain is something he has never had in the past and there has really been no evidence on imaging of the neck, which has not frankly been done that there is a new structural problem there. PHYSICAL EXAMINATION: Today, he is awake, alert, oriented in 3 spheres. He is little dysarthric because of the use of Dilaudid now for pain and is little confused, but his historic capability seem to be valid. He insists that he has never had neck pain like this as part of his posttraumatic headaches and states that he really cannot flex his neck without pain radiating down into his upper back, but not into his arms and he denies any leg weakness or problems with fixed numbness or weakness in his hands. He has intact cranial nerves, normal facial motility and strength, normal facial sensation and speech is altered by the Dilaudid, but is otherwise normal and there is really nothing on exam to suggest a significant myelopathy with normal reflexes, downgoing toes, good strength, normal sensation, no Estrada signs, etc. Neck is quite stiff. I can barely flex it beyond 10 degrees and there is some diffuse tenderness in the paracervical muscles, but there is no real point tenderness to palpation or percussion. At this point, I am going to suggest an MRI be done of the cervical spine with and without contrast and relayed this impression to Dr. Franz. The neck discomfort is a new issue. It is possible this is due to the subarachnoid bleeding postoperatively with layering of blood in the cervical spine and irritation of the meninges, but it is unlikely but still possible this could be an infectious process and I hate to see an early epidural abscess or diskitis be missed. I have no suggestions otherwise as the headache really does not seem to be a problem right now beyond the standard headache he has had all along. Right now the neck issue seems to be paramount and we need to address it. I will check his images as soon as they are available and I will check back with him tomorrow, but for now, we were not successful in treating his chronic posttraumatic headaches in the past and I do not think we are going to be very successful in treating the current ones which seemto be more focal in the cervical area than actual headaches. Again, I will check back with him tomorrow. JE
[2019-05-04] MEDS ORDERED: GADOBUTROL 65ML VIAL IV PRN (16:35)
--- NOTE | 2019-05-04 17:19 | Magnetic Resonance Report ---
MRI OF THE CERVICAL SPINE WITH AND WITHOUT CONTRAST CLINICAL HISTORY: neck pain, r/o abscess, discitis COMPARISON: Cervical spine radiographs May 04, 2019. TECHNIQUE: Utilizing a 1.5 Dahlia magnet and dedicated coil, multiplanar, multiecho imaging of the ce rvical spine was performed before and after intravenous administration of 11 of Gadavist. FINDINGS: Alignment of the cervical spine is anatomic. Slight loss of height of the superior endplate of C5 is chronic. There is no acute fracture. Cervical cord signal and caliber are normal. There is no intraca nalicular mass, fluid collection or abnormal enhancement. Paravertebral soft tissues are unremarkable . C2-C3: The central canal and neural foramen are patent. C3-C4: The central canal and neural foramen are patent. C4-C5: The central canal is patent and there is mild narrowing of the right neural foramen. C5-C6: The central canal is patent. There is mild narrowing of the left neural foramen. C6-C7: The central canal and neural foramen are patent. C7-T1: The central canal and neural foramen are patent. IMPRESSION: 1. No acute process within the cervical spine. 2. Minimal multilevel degenerative changes of the cervical spine. Patent central canal. Mild multilev el neural foraminal stenosis. Electronically signed by: Guevara Mendez M.D. 05/04/2019 5:17 PM
[2019-05-04 17:36] LABS: BUN Creatinine Ratio 11.1 (10-20); Calcium 9.2 mg/dl (8.5-10.1); Creatinine Clr Calc Pharmacy 130.8 ml/min; Est GFR (African American) 117.2; Est GFR (Non-African American) 101.1; Potassium 3.6 mmol/L (3.5-5.1)
[2019-05-04] MEDS: CYCLOBENZAPRINE HCL 10 MG TAB PO PRN (20:46)
[2019-05-05] MEDS: HYDROmorphone INJ 0.5 MG/0.5 ML SYR IV PRN ×4 (01:04→14:21)
[2019-05-05] MEDS: TRAMADOL HCL 50 MG TABLET PO PRN (04:12)
[2019-05-05] MEDS: ACETAMINOPHEN 1,000 MG/100 ML VIAL IV SCH ×2 (06:07→14:19)
[2019-05-05] MEDS: CYCLOBENZAPRINE HCL 10 MG TAB PO PRN (07:54)
[2019-05-05] MEDS: PHENYTOIN 50 MG CHEW PO SCH ×2 (07:54→14:19)
[2019-05-05] MEDS: DOCUSATE SODIUM/SENNA 50/8.6MG TAB PO SCH (07:55)
[2019-05-05 09:53] LABS: Basophils # (auto) 0.03 K/uL (0-0.2); Basophils % (auto) 0.2 %; Eosinophils # (auto) 0.13 K/uL (0-0.5); Eosinophils % (auto) 0.7 %; Hemoglobin 16.6 g/dL (14.0-18.0); Immature Granulocytes # (auto) 0.18 K/uL (0.00-0.02); Lymphocytes # (auto) 2.95 K/uL (1.2-3.4); Lymphocytes % (auto) 16.9 %; Mean Corpuscular Hgb Conc 37.7 g/dL (32-36); Mean Corpuscular Volume 88.7 fL (80-100); Mean Platelet Volume 9.8 fL (7.4-10.4); Monocytes # (auto) 1.37 K/uL (0.11-0.59); Monocytes % (auto) 7.9 %; Neutrophils # (auto) 12.75 K/uL (1.4-6.5); Neutrophils % (auto) 73.3 %; Platelet Count 205 K/uL (130-400); RDW Coefficient of Variation 12.8 % (11.5-14.5); RDW Standard Deviation 40.7 fL (36.4-46.3); Red Blood Count 4.96 M/uL (4.7-6.1); White Blood Count 17.41 K/uL (4.8-10.8)
--- NOTE | 2019-05-05 10:38 | Communication Note ---
Date of Service: May 05, 2019 I saw Mr. Arthur today, examined him, reviewed his chart, and reviewed the MRI images of his cervical spine which were done yesterday He has a low-grade fever at most, a rising white count, and persistent head and neck pain with a lot of nuchal rigidity that is not well explained on the basis of the MRI which is or the CT of his head which showed postoperative changes including accumulation of subarachnoid blood and a subdural collection at the site of the cranioplasty Mentally he seems to be a little dull but is receiving analgesia and exam with t he exception of the nuchal rigidity is unremarkable and certainly reveals no evidence for cranial neuropathies, cervical radiculopathies or any myelopathy At this point I would be somewhat concerned about a postoperative meningitis although I would expect him to appear more ill than he does not have a higher fever I have suggested to Dr. Bashir that he contact the neurosurgery team at [facility] and get some advice regarding how they wish to proceed here Any lumbar puncture I believe should be done under fluoroscopy so absolutely clean test is done and we probably could not do that until tomorrow by radiology There she may wish to assess him and make their own decision regarding the necessity or lack thereof for lumbar puncture We really have cognos developer with this man and we do not have a neurosurgeon on our staff so I feel frankly that further decisions regarding his evaluation should reside with the neurosurgical team who did the procedure back on April 29 History suggests that he was doing well for reasonably well postoperatively and at the cervical pain and neck stiffness began after he arrived home 3 to 4 days after the surgery this appears to be a delayed postoperative issue a relatively new one in a man who has not had cervical pain of this nature before I will await the results of Dr. Bashir's conversation with the neurosurgical team but as noted above, frankly would prefer that he be transferred back to [facility] for further assessment Felix Lewis MD
--- NOTE | 2019-05-05 14:04 | Hospitalist Progress Note ---
Date of Service May 05, 2019 Assessment & Plan (1) Acute headache: In the setting of recent cranioplasty (6 days ago) Initial CT head: IMPRESSION: 1. Postoperative changes from recent left-sided craniotomy. Acute left-sided subdural hematoma is noted adjacent to the left frontal and temporal lobes measuring up to 5 mm. 2. Scattered subarachnoid hemorrhage about the right cerebral hemisphere with possible additional subarachnoid hemorrhage about the quadrigeminal plate cistern. No midline shift or acute infarction identified. 3. Air and fluid-filled collection superficial to the craniotomy site is suggestive of a postoperative seroma adjacent to the graft. Patient admitted for pain control and observation Neurologist Dr. Lewis consulted Given PRN IV Dilaudid, tramadol; scheduled IV Ofirmev Headache seems to be improving with IV Dilaudid every 4 hours Patient still planing of severe posterior neck pain, with full range of motion secondary to pain Flexeril 10 mg p.o. as needed given with minimal relief Cervical MRI obtained: IMPRESSION: 1. No acute process within the cervical spine. 2. Minimal multilevel degenerative changes of the cervical spine. Patent central canal. Mild multilevel neural foraminal stenosis. Patient remained afebrile but leukocytosis seems to be increasing, from 13,000 up to 17,000 Blood cultures negative so far Discussed with neurology service, concern for possible postoperative meningitis at this time Recommend to transfer to [facility] neurosurgery service for further evaluation and management Discussed case with Dr. Jaquez She kindly accepted patient for transfer today for further evaluation management (2) History of cranioplasty: Surgical site monitored, surgical wound showing good healing, no signs of infection Patient to return to [facility] today for further evaluation and management (3) Acute hypokalemia: Noted to have low potassium 2.2 , calcium 5.9, magnesium and phosphorus on admission Repeat labs few hours liters showed improvement of electrolytes, even with no repletion Reliance to be secondary to lab error, possible blood specimen was drawn from an IV fluid site Monitored and repeat BMP DVT Prophylaxis SCDs for now in light of s/p cranioplasty Dispo Transfer to [facility] for further evaluation management Discussed with patient's in detail and at length She is understanding, agreeable and comfortable with plan of care Subjective Seen in follow-up for headache, neck pain status post cranial plasty Seen sleeping but easily arousable States his headache is improving but still has significant neck pain Denies nausea vomiting, denies new focal neurologic deficits No chest pain, shortness of breath, palpitations, dizziness No other symptoms Review of Systems Review of Systems: All systems reviewed & are unremarkable except as noted in HPI & below Physical Exam Physical Exam: General- oriented x 3, not in distress, speaks in sentences with no effort or accessory muscle use Head-surgical wound, healing well, sutures in place, no bleeding or discharge Eyes- anicteric Neck- no JVD Lungs- clear bilaterally, no crackles or wheezing Heart- normal rate, regular rhythm; no murmurs Abdomen- normal bowel sounds, nondistended, soft, nontender Extremities- no pretibial edema, no calf tenderness Neuro- alert, oriented x 3; no gross focal neurologic deficits Neck-positive rigidity Skin- warm & dry Results & Data Vital Signs (Past 12 Hours) Vital Signs Temp Pulse Resp BP Pulse Ox 05/05/19 12:52 36.5 C 60 22 153/80 H 97 05/05/19 07:17 37.5 C 69 22 164/91 H 98 05/05/19 03:36 37.4 C 61 20 166/91 H 98 Laboratory Results Laboratory Results - last 24 hr 05/04/19 05/05/19 05/05/19 17:00 09:14 09:40 WBC Cancelled 17.41 H RBC Cancelled 4.96 Hgb Cancelled 16.6 Hct Cancelled 44.0 MCV Cancelled 88.7 MCH Cancelled 33.5 MCHC Cancelled 37.7 H RDW Std Deviation Cancelled 40.7 RDW Coeff of Marlys Cancelled 12.8 Plt Count Cancelled 205 MPV Cancelled 9.8 Immature Gran % (Auto) Cancelled 1.0 Neut % (Auto) Cancelled 73.3 Lymph % (Auto) Cancelled 16.9 Payne % (Auto) Cancelled 7.9 Eos % (Auto) Cancelled 0.7 Baso % (Auto) Cancelled 0.2 Immature Gran # (Auto) Cancelled 0.18 H Neut # (Auto) Cancelled 12.75 H Lymph # (Auto) Cancelled 2.95 Payne # (Auto) Cancelled 1.37 H Eos # (Auto) Cancelled 0.13 Baso # (Auto) Cancelled 0.03 Absolute Nucleated RBC Cancelled Nucleated RBC % (auto) Cancelled Neutrophils % (Manual) Cancelled Band Neutrophils % Cancelled Lymphocytes % (Manual) Cancelled Prolymphocyte % Cancelled Reactive Lymphs % (Man) Cancelled Monocytes % (Manual) Cancelled Eosinophils % (Manual) Cancelled Basophils % (Manual) Cancelled Metamyelocytes % (Man) Cancelled Myelocytes % (Man) Cancelled Promyelocytes % (Man) Cancelled Blast Cells % (Manual) Cancelled Plasma Cell % (Manual) Cancelled Other Cells % Cancelled Nucleated RBC % Cancelled Neutrophils # (Manual) Cancelled Band Neutrophils # Cancelled Total Absolute Neuts Cancelled Lymphocytes # (Manual) Cancelled Prolymphocyte # Cancelled Reactive Lymphs # Cancelled Total Abs Lymphocytes Cancelled Monocytes # (Manual) Cancelled Eosinophils # (Manual) Cancelled Basophils # (Manual) Cancelled Metamyelocytes # (Man) Cancelled Myelocytes # (Manual) Cancelled Promyelocytes # (Man) Cancelled Blast Cells # (Man) Cancelled Plasma Cell # (Manual) Cancelled Other Cells # Cancelled Nucleated RBCs # (Man) Cancelled Hypersegmented Neuts Cancelled Hyposegmented Neuts Cancelled Hypogranular Neuts Cancelled Large Granular Lymphs Cancelled # Lrg Granular Lymphs Cancelled Hairy Cells Cancelled Smudge Cells Cancelled Toxic Granulation Cancelled Toxic Vacuolation Cancelled Dohle Bodies Cancelled Dominguez Rods Cancelled Platelet Estimate Cancelled Hypogranular Platelets Cancelled Clumped Platelets Cancelled Giant Platelets Cancelled Platelet Satelliting Cancelled RBC Morphology Cancelled Polychromasia Cancelled Hypochromasia Cancelled Poikilocytosis Cancelled Basophilic Stippling Cancelled Anisocytosis Cancelled Microcytosis Cancelled Macrocytosis Cancelled Spherocytes Cancelled Pappenheimer Bodies Cancelled Sickle Cells Cancelled Target Cells Cancelled Tear Drop Cells Cancelled Ovalocytes Cancelled Stomatocytes Cancelled [place] Bodies Cancelled Echinocytes Cancelled Acanthocytes (Spur) Cancelled Rouleaux Cancelled RBC Agglutinates Cancelled Schistocytes Cancelled RBC Morph Comment Cancelled Sezary Cell Cancelled Sodium 135 L Potassium 3.6 Chloride 101 Carbon Dioxide 26 Anion Gap 8.0 BUN 10 Creatinine 0.86 Est Cr Clr Drug Dosing 130.8 Est GFR ( Amer) 117.2 Est GFR (Non-Af Amer) 101.1 BUN/Creatinine Ratio 11.1 Glucose 100 H Calcium 9.2 (1) Acute headache Headache type: unspecified Intractability: intractable Qualified Code(s): R51 - Headache
--- NOTE | 2019-05-05 14:25 | Discharge Summary ---
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 Pt reports initial injury occurred during a pick-up football game and ultimately required life flight to [facility] and placement of a bone flap. About four years ago, he developed chronic frontal headaches for which he followed with neurology and was tried on multiple medications without relief. He was followed by [facility] who declined to proceed with cranioplasty so pt sought a second opinion at [facility]. Decision made to proceed with cranioplasty after deterioration of bone flap noted on MRI and pt with persistent symptoms affecting his quality of life. Per , the surgery went well and patient was discharged on POD #2 feeling well. He came home and slept for a couple hours. When he woke up, he noted a new generalized GREEN with associated neck pain and stiffness. He has been attempting to manage this at home using oxycodone and Tylenol but pain seems to be worsening. He slept most of yesterday except when he woke up to take his medications. Limited oral intake since discharge. Last night, he was awoken around 2-3 am with worsening GREEN and nausea/vomiting. He reports two episodes of vomiting at home but none in ED. His reports that she called [facility] this AM and spoke to someone from neurosurgery about symptoms (she was told his surgeon, Dr. Simms, is out of town) - they recommended that patient be evaluated in the local ED. At present, pt describes GREEN as a generalized pressure and pain - initially upon presentation it was 8-9/10 but after pain medication it is currently 5-6/10. He continues with nausea even with Zofran but has not vomiting. He describes associated posterior neck and stiffness with limited ROM due to pain, particularly flexion/extension. He denies fevers, chills, sweats, dizziness, syncope, chest pain, dyspnea, visual changes, parasthesias, focal weakness. He does note fatigue. Admission Exam Per Admitting Provider Constitutional: well developed and well nourished Appears uncomfortable but oriented x3, answering questions appropriately. Eyes: PERRL, conjunctivae normal, anicteric sclerae EOM intact bilaterally ENMT: external ear and nose normal, oropharynx normal Neck: trachea midline Respiratory: no respiratory distress Auscultation: lungs clear to auscultation bilaterally; no rales, no rhonchi and no wheezes Cardiovascular: Rate/Rhythm: regular rate and regular rhythm Heart Sounds: no gallop, no murmur and no cardiac rub Extremities: no calf tenderness and no pedal edema Gastrointestinal (Abdomen): Inspection/Auscultation: normal bowel sounds; abdomen not distended Percussion/Palpation: abdomen soft; abdomen nontender and no guarding Musculoskeletal: no cyanosis or clubbing, extremities motor strength 5/5 Skin: no rashes, warm and dry incision on left scalp with sutures C/D/I - no surrounding erythema or drainage Neurologic: CN's II-XI intact bilaterally; no focal motor deficits and not confused Speech / Cognition: normal speech Motor/Sensory: no tremor, no pronator drift and no sensory deficit Psychiatric: A+Ox3, euthymic affect Principal Diagnosis Severe headache and neck pain, status post cranioplasty Discharge Exam General- oriented x 3, not in distress, speaks in sentences with no effort or accessory muscle use Head-surgical wound, healing well, sutures in place, no bleeding or discharge Eyes- anicteric Neck- no JVD Lungs- clear bilaterally, no crackles or wheezing Heart- normal rate, regular rhythm; no murmurs Abdomen- normal bowel sounds, nondistended, soft, nontender Extremities- no pretibial edema, no calf tenderness Neuro- alert, oriented x 3; no gross focal neurologic deficits Neck-positive rigidity Skin- warm & dry Discharge Data Allergies Allergy/AdvReac Type Severity Reaction Status Date / Time No Known Allergies Allergy Verified 05/03/19 06:27 Consultations 05/03/19 08:40 ED Decision to Admit Stat 05/03/19 09:34 Consult Nephrology Routine 05/04/19 08:11 Consult Neurology Routine 05/05/19 13:21 Burn CD for patient Routine Ordered Studies 05/03/19 05:55 CT head/brain wo con Urgent 05/04/19 15:22 MR cervical spine wo/w con Routine Hospital Course (1) Acute headache: In the setting of recent cranioplasty (6 days ago) Initial CT head: IMPRESSION: 1. Postoperative changes from recent left-sided craniotomy. Acute left-sided subdural hematoma is noted adjacent to the left frontal and temporal lobes measuring up to 5 mm. 2. Scattered subarachnoid hemorrhage about the right cerebral hemisphere with possible additional subarachnoid hemorrhage about the quadrigeminal plate cistern. No midline shift or acute infarction identified. 3. Air and fluid-filled collection superficial to the craniotomy site is suggestive of a postoperative seroma adjacent to the graft. Patient admitted for pain control and observation Neurologist Dr. Lewis consulted Given PRN IV Dilaudid, tramadol; scheduled IV Ofirmev Headache controlled with IV Dilaudid every 4 hours Patient still planing of severe posterior neck pain, with very limited range of motion secondary to severe pain Flexeril 10 mg p.o. as needed given with minimal relief Cervical MRI obtained: IMPRESSION: 1. No acute process within the cervical spine. 2. Minimal multilevel degenerative changes of the cervical spine. Patent central canal. Mild multilevel neural foraminal stenosis. Patient remained afebrile but leukocytosis noted to be increasing, from 13,000 up to 17,000 Blood cultures negative so far Discussed with neurology service, concern for possible postoperative meningitis at this time Recommend to transfer to [facility] neurosurgery service for further evaluation and management Discussed case with Dr. Jaquez She kindly accepted patient for transfer today for further evaluation management (2) History of cranioplasty: Surgical site monitored, surgical wound showing good healing, no signs of infection Patient to return to [facility] today for further evaluation and management (3) Hypertension: Blood pressure systolic 150s to 160s Likely secondary to underlying pain Not known to be hypertensive We will start amlodipine 5 mg p.o. daily On PRN hydralazine Monitor closely (4) Acute hypokalemia: Noted to have low potassium 2.2 , calcium 5.9, magnesium and phosphorus on admission Repeat labs few hours liters showed improvement of electrolytes, even with no repletion [place] to be secondary to lab error, possible blood specimen was drawn from an IV fluid site Monitored and repeat BMP normalized DVT Prophylaxis SCDs for now in light of s/p cranioplasty Dispo Transfer to [facility] for further evaluation management Discussed with patient's in detail and at length She is understanding, agreeable and comfortable with plan of care Total Time Total Time Spent Total Time Spent (In Minutes): 60 minutes Discharge Plan Discharge Items Patient Disposition: Transfer Acute Care Hospital Reason For Visit: SEVERE GREEN S/P CRANIOPLASTY, HYKALEMIA Discharge Diagnosis: Severe headache and neck pain, status post cranioplasty Condition: Fair Discharge Goals: Decrease discomfort, Diagnostic testing and Therapeutic intervention Activity: As commented below Activity Comment: Out of bed as tolerated, fall precautions Lifting: Wait until after follow-up appointment Exercise/Sports: Wait until after follow-up appointment Driving/Machine Use Comment: No driving Non-emergency contact: Primary Care Provider Call non-emergency contact if: you have any medication questions Follow-up/Referrals: Mat Thomas MD [Primary Care Provider] - Diet: Heart Healthy Addtl Provider Instructions: Please refer to accompanying hospital discharge summary for further details. Prescriptions: New cyclobenzaprine 10 mg Tablet 10 mg PO BID PRN (Reason: Muscle Spasm) 10 Days Qty: 14 RF: 0 Continued acetaminophen 325 mg tablet 650 mg PO Q4 PRN (Reason: Pain) RF: 0 phenytoin 50 mg tablet,chewable 100 mg PO TID RF: 0 Discontinued oxycodone 5 mg tablet 5 mg PO Q4 PRN (Reason: Pain) RF: 0 Stand-Alone Forms: [facility] Discharge Orders: Discharge Order (Routine); Ordered 05/05/19 Ordered By: Jesse Franz Admission Data Admit Date/Time: 05/03/19 09:34 Attending Provider: Jesse Franz Admit Provider: Jesse Franz Primary Care Provider: Mat Thomas Other Providers: Jesse Franz ; Ambar Dyer ; Felix Lewis Service: Telemetry
[2019-05-05] MEDS ORDERED: AMLODIPINE BESYLATE 5 MG TAB PO ONE (14:29)
== END 2019-05-05 15:19 | disposition short-term general hospital (02) | DRG 947 ==
LOC: ED 05:37 → 2S 09:34